=== PATIENT | male | born 1995 | race Caucasian/White ===

== ENCOUNTER 2017-12-01 02:15 | Emergency (ER) | payer BC ==
[2017-12-01] MEDS: DIPHTH/TET/ACEL PERTUSS (ADULT) 0.5 ML VIAL IM* (04:04)
== END 2017-12-01 04:18 | disposition home or self-care (01) ==
LOC: E/R 02:15
DX: S41.111A Laceration without foreign body of right upper arm, initial encounter (principal); S51.801A Unspecified open wound of right forearm, initial encounter; J45.909 Unspecified asthma, uncomplicated; Y08.89XA Assault by other specified means, initial encounter; Z23 Encounter for immunization
CPT/HCPCS: 90471; 90715; 99283-25

== ENCOUNTER 2018-02-17 15:42 | Emergency (ER) | payer SELFPAY, BC | END 2018-02-17 17:50 | disposition left against medical advice (07) | LOC: FTE 15:42 | DX: Z53.21 Procedure and treatment not carried out due to patient leaving prior to being seen by health care provider (principal) ==

== ENCOUNTER 2018-09-19 04:53 | Emergency (ER) | payer SELFPAY ==
[2018-09-19] MEDS ORDERED: DIPHTH/TET/ACEL PERTUSS (ADULT) 0.5 ML VIAL IM* (05:30)
[2018-09-19] MEDS ORDERED: HYDROCODONE/APAP (10/325) TAB PO (05:30)
== END 2018-09-19 06:31 | disposition left against medical advice (07) ==
LOC: FTE 04:53
DX: S60.812A Abrasion of left wrist, initial encounter (principal); J45.909 Unspecified asthma, uncomplicated; S20.319A Abrasion of unspecified front wall of thorax, initial encounter; S20.411A Abrasion of right back wall of thorax, initial encounter; Y04.8XXA Assault by other bodily force, initial encounter
CPT/HCPCS: 99282